=== PATIENT | male | born 1940 | race Caucasian/White ===

== ENCOUNTER 2018-12-09 12:35 | Observation (INO) ==
[2018-12-09 13:28] LABS: Basophils # 0.1 10*3/uL (0.0-0.2); Basophils % 0.8 % (0.0-0.8); Eosinophils # 0.2 10*3/uL (0.0-0.87); Eosinophils % 2.5 % (0.00-10.9); Hematocrit 47.8 VOL% (42.0-52.0); Hemoglobin 15.5 GM/DL (14.0-18.0); Immature Granulocytes % 0.5 %; Immature Granulocytes Absolute 0.03 #; Lymphocytes % 15.2 % (21.2-54.2); Mean Corpuscular HGB Conc 32.4 GM/DL (32-36); Mean Corpuscular Hemoglobin 29 PG (27-34); Mean Platelet Volume 10.9 FL (9.6-12.0); Monocytes # 0.4 10*3/uL (0.11-0.8); Neutrophils # 4.7 10*3/uL (1.4-7.4); Platelet Count 214 T/CUMM (130-400); Red Blood Count 5.31 MC/CUMM (3.8-5.5); Red Cell Distribution Width 12.7 % (9.3-17.3); White Blood Count 6.3 T/CUMM (4-12)
[2018-12-09 13:40] LABS: PT Patient Result 10.7 SECS; Partial Thromboplastin Time 26.9 SECS (0-40)
[2018-12-09 13:43] LABS: Bilirubin,Total 0.7 MG/DL (0.2-1.0); Calcium 9.4 MG/DL (8.5-10.1); Osmolality,Calculated 277.7 MOS/KG (273-304); Potassium 4.2 MMOL/L (3.5-5.1); Total Protein 7.7 G/DL (6.4-8.3)
[2018-12-09] MEDS ORDERED: SODIUM CHLORIDE 0.9% 500 ML IV STA (14:46)
[2018-12-09 15:26] LABS: Barbiturates Screen,Urine Negative (Negative); Benzodiazepines Screen,Urine Negative (Negative); Cannabinoid Screen,Urine Negative (Negative); Opiate Screen,Urine Negative (Negative); Phencyclidine Screen,Urine Negative (Negative)
[2018-12-09 15:31] LABS: Apearance,Urine CLEAR (Clear); Bilirubin,Urine Negative (Negative); Blood, Urine Negative (Negative); Glucose,Urine (UA) Negative (Negative); Ketones,Urine Negative (Negative); Mucus,Urine Occasional /LPF (Occasional); Nitrite,Urine Negative (Negative); Protein,Urine Negative; RBC,Urine 1 /HPF (0-4); Urine Color Yellow (Yellow); Urine Specific Gravity 1.017 (1.001-1.035); Urine Urobilinogen < 2.0 EU/DL (0.2-1.0); WBC,Urine <1 /HPF (0-6)
[2018-12-09 15:52] LABS: Alanine Aminotransferase 13 U/L (16-61); Albumin 4.1 G/DL (3.4-5.0); Alkaline Phosphatase 80 U/L (45-117); Aspartate Amino Transferase 16 U/L (0-37); Blood Urea Nitrogen 20 MG/DL (7-18); Calcium 9.4 MG/DL (8.5-10.1); Glucose 95 MG/DL (74-106); Osmolality,Calculated 279.5 MOS/KG (273-304); Potassium 4.4 MMOL/L (3.5-5.1); Sodium 139 MMOL/L (136-145); Total Protein 7.5 G/DL (6.4-8.3); Troponin I < 0.015 NG/ML (0.00-0.045)
[2018-12-09] MEDS ORDERED: ACETAMINOPHEN 325 MG TABLET PO PRN (17:30)
[2018-12-09] MEDS ORDERED: ONDANSETRON 4 MG/2 ML VIAL IV PRN (17:30)
[2018-12-09] MEDS ORDERED: MORPHINE 4 MG/1 ML VIAL IV PRN (17:30)
[2018-12-09] MEDS: SODIUM CHLORIDE 0.9% 1,000 ML IV SCH (17:43)
[2018-12-09] MEDS: DONEPEZIL 10 MG TABLET PO SCH (20:29)
[2018-12-09] MEDS: DOCUSATE SODIUM 100 MG CAPSULE PO SCH (20:29)
[2018-12-09] MEDS: MEMANTINE 10 MG TABLET PO SCH (20:29)
[2018-12-10 05:56] LABS: Basophils # 0.1 10*3/uL (0.0-0.2); Basophils % 0.8 % (0.0-0.8); Eosinophils # 0.3 10*3/uL (0.0-0.87); Eosinophils % 4.2 % (0.00-10.9); Hematocrit 43.3 VOL% (42.0-52.0); Hemoglobin 13.7 GM/DL (14.0-18.0); Immature Granulocytes % 0.3 %; Immature Granulocytes Absolute 0.02 #; Lymphocytes # 1.5 10*3/uL (1.4-4.0); Lymphocytes % 21.8 % (21.2-54.2); Mean Corpuscular HGB Conc 31.6 GM/DL (32-36); Mean Corpuscular Hemoglobin 29 PG (27-34); Mean Platelet Volume 11.3 FL (9.6-12.0); Monocytes # 0.7 10*3/uL (0.11-0.8); Monocytes % 9.9 % (1.7-12.7); Neutrophils # 4.2 10*3/uL (1.4-7.4); Platelet Count 199 T/CUMM (130-400); Red Blood Count 4.76 MC/CUMM (3.8-5.5); Red Cell Distribution Width 12.7 % (9.3-17.3); White Blood Count 6.7 T/CUMM (4-12)
[2018-12-10 06:24] LABS: Albumin 3.2 G/DL (3.4-5.0); Bilirubin,Total 1.1 MG/DL (0.2-1.0); Calcium 8.7 MG/DL (8.5-10.1); Osmolality,Calculated 276.7 MOS/KG (273-304); Risk Ratio 3.16; Total Protein 6.7 G/DL (6.4-8.3)
[2018-12-10] MEDS: SODIUM CHLORIDE 0.9% 1,000 ML IV SCH (06:29)
[2018-12-10] MEDS: ARIPiprazole 5 MG TABLET PO SCH (08:42)
[2018-12-10] MEDS: ROSUVASTATIN 10 MG TABLET PO SCH (08:42)
[2018-12-10] MEDS: ESCITALOPRAM 10 MG TABLET PO SCH (08:42)
[2018-12-10] MEDS: CARBIDOPA/LEVODOPA 25-100 MG TABLET PO SCH ×4 (08:42→18:19)
[2018-12-10] MEDS: ASPIRIN EC 325 MG TABLET PO SCH (08:42)
[2018-12-10] MEDS: DOCUSATE SODIUM 100 MG CAPSULE PO SCH ×2 (08:42→21:46)
[2018-12-10] MEDS: MEMANTINE 10 MG TABLET PO SCH ×2 (08:43→21:46)
[2018-12-10] MEDS: PANTOPRAZOLE 40 MG TABLET PO SCH (08:43)
[2018-12-10] MEDS: LACTOBACILLUS ACIDOPHILUS/BULGARICUS CAPLET PO SCH (08:43)
[2018-12-10] MEDS: MULTIVITAMIN (CENTRUM) TABLET PO SCH (08:43)
[2018-12-10] MEDS: LISINOPRIL 2.5 MG TABLET PO SCH (08:43)
[2018-12-10] MEDS ORDERED: PANTOPRAZOLE 40 MG TABLET PO SCH (09:00)
[2018-12-10] MEDS: DONEPEZIL 10 MG TABLET PO SCH (21:46)
[2018-12-11 08:13] VITALS: BP 159/81
[2018-12-11] MEDS: MEMANTINE 10 MG TABLET PO SCH (08:54)
[2018-12-11] MEDS: ARIPiprazole 5 MG TABLET PO SCH (08:54)
[2018-12-11] MEDS: DOCUSATE SODIUM 100 MG CAPSULE PO SCH (08:54)
[2018-12-11] MEDS: CARBIDOPA/LEVODOPA 25-100 MG TABLET PO SCH (08:54)
[2018-12-11] MEDS: MULTIVITAMIN (CENTRUM) TABLET PO SCH (08:54)
[2018-12-11] MEDS: ROSUVASTATIN 10 MG TABLET PO SCH (08:54)
[2018-12-11] MEDS: ESCITALOPRAM 10 MG TABLET PO SCH (08:54)
[2018-12-11] MEDS: LACTOBACILLUS ACIDOPHILUS/BULGARICUS CAPLET PO SCH (08:54)
[2018-12-11] MEDS: LISINOPRIL 2.5 MG TABLET PO SCH (08:54)
[2018-12-11] MEDS: ASPIRIN EC 325 MG TABLET PO SCH (08:55)
[2018-12-11] MEDS: PANTOPRAZOLE 40 MG TABLET PO SCH (08:55)
== END 2018-12-11 10:26 | disposition home health service (06) ==
LOC: N.ED 12:35 → N.EDINP 12:35 → N.5E 17:16
PROVIDERS: ADMIT Family Medicine; ATTEND Family Medicine

== ENCOUNTER 2021-09-26 08:44 | Inpatient (IN) ==
[2021-09-26] MEDS ORDERED: LIDOCAINE 1% 20 ML VIAL ONE (09:26)
[2021-09-26] MEDS ORDERED: HEPARIN/NACL 0.9% 2 UNITS/ML 1,000 UNIT/500 ML BAG IV ONE (09:26)
[2021-09-26] MEDS ORDERED: HEPARIN/NACL 0.9% 2 UNITS/ML 2,000 UNIT/1,000 ML BAG IV ONE (09:26)
[2021-09-26] MEDS ORDERED: HEPARIN 5,000 UNIT/1 ML VIAL ONE ×2 (09:28→10:26)
[2021-09-26] MEDS ORDERED: ASPIRIN 325 MG TABLET ONE (09:28)
[2021-09-26] MEDS ORDERED: NITROGLYCERIN DRIP 50 MG/250 ML BOTTLE IV ONE ×2 (09:35→15:50)
[2021-09-26] MEDS ORDERED: MIDAZOLAM 2 MG/2 ML VIAL ONE (09:35)
[2021-09-26] MEDS ORDERED: fentaNYL 100 MCG/2 ML VIAL ONE (09:35)
[2021-09-26] MEDS ORDERED: diphenhydrAMINE 50 MG/1 ML VIAL ONE (09:38)
[2021-09-26] MEDS ORDERED: methylPREDNISolone SOD SUC 125 MG/2 ML VIAL ONE (09:39)
[2021-09-26] MEDS ORDERED: ASPIRIN 325 MG TABLET PO STA (09:45)
[2021-09-26] MEDS ORDERED: HEPARIN 5,000 UNIT/1 ML VIAL IV ONE (09:45)
[2021-09-26] MEDS ORDERED: NALOXONE 0.4 MG/ML VIAL ONE (09:56)
[2021-09-26] MEDS ORDERED: METOPROLOL TARTRATE 5 MG/5 ML VIAL IV ONE (10:48)
[2021-09-26] MEDS ORDERED: DOCUSATE SODIUM 100 MG CAPSULE PO PRN (10:54)
[2021-09-26] MEDS ORDERED: ACETAMINOPHEN 325 MG TABLET PO PRN (10:54)
[2021-09-26] MEDS ORDERED: MAGNESIUM SULF RIDER 2 GM/50 ML PREMIX IV PRN (10:54)
[2021-09-26] MEDS ORDERED: ONDANSETRON 4 MG/2 ML VIAL IV PRN (10:54)
[2021-09-26] MEDS ORDERED: PROMETHAZINE 25 MG TABLET PO PRN (10:54)
[2021-09-26] MEDS ORDERED: POTASSIUM CHLORIDE 20 MEQ TABLET PO PRN (10:54)
[2021-09-26] MEDS ORDERED: ALUMINUM/MAGNES/SIMETH MAX STR 30 ML UDCUP PO PRN (10:54)
[2021-09-26] MEDS ORDERED: MAGNESIUM SULF RIDER 4 GM/100 ML PREMIX IV PRN (10:54)
[2021-09-26] MEDS ORDERED: hydrALAZINE 20 MG/1 ML VIAL IV PRN (10:54)
[2021-09-26] MEDS ORDERED: guaiFENesin/DM ER 600-30 MG TABLET PO PRN (10:54)
[2021-09-26] MEDS ORDERED: diphenhydrAMINE CAP 25 MG CAPSULE PO PRN (10:54)
[2021-09-26] MEDS ORDERED: CLOPIDOGREL 300 MG TABLET ONE (11:04)
[2021-09-26 11:06] LABS: Basophils # 0.1 10*3/uL (0.0-0.2); Basophils % 0.6 % (0.0-0.8); Eosinophils # 0.2 10*3/uL (0.0-0.87); Eosinophils % 1.4 % (0.00-10.9); Hematocrit 43.6 VOL% (42.0-52.0); Hemoglobin 14.3 GM/DL (14.0-18.0); Immature Granulocytes % 0.6 %; Immature Granulocytes Absolute 0.07 #; Lymphocytes # 1.1 10*3/uL (1.4-4.0); Mean Corpuscular HGB Conc 32.8 GM/DL (32-36); Mean Corpuscular Volume 90.1 FL (87-102); Mean Platelet Volume 11.8 FL (9.6-12.0); Monocytes % 10.5 % (1.7-12.7); Neutrophils % 76.9 % (38.7-73.9); Platelet Count 233 T/CUMM (130-400); Red Blood Count 4.84 MC/CUMM (3.8-5.5); White Blood Count 11.1 T/CUMM (4-12)
[2021-09-26] MEDS: MORPHINE 2 MG/1 ML SYRINGE IV PRN (12:04)
[2021-09-26] MEDS ORDERED: ZIPRASIDONE 20 MG/1 ML VIAL IM PRN (13:21)
[2021-09-26 13:40] LABS: Albumin 3.5 G/DL (3.4-5.0); Bilirubin,Total 1.3 MG/DL (0.20-1.00); Calcium 8.6 MG/DL (8.5-10.1); Osmolality,Calculated 276.8 MOS/KG (273-304); Potassium 4.2 MMOL/L (3.5-5.1); Risk Ratio 3.51; Thyroid Stimulating Hormone 2.2 uIU/ml (0.358-3.74); Total Protein 7.2 G/DL (6.4-8.2); VLDL Cholesterol 17.2 MG/DL
[2021-09-26 13:41] LABS: High Sensitive Troponin I* 23294.7 ng/L (0-78)
[2021-09-26] MEDS ORDERED: NITROGLYCERIN DRIP 50 MG/250 ML BOTTLE IV PRN (16:19)
[2021-09-26] MEDS: ROSUVASTATIN 20 MG TABLET PO SCH (20:28)
[2021-09-26] MEDS: METOPROLOL TARTRATE 25 MG TABLET PO SCH (20:28)
[2021-09-26] MEDS: ZALEPLON 5 MG CAPSULE PO PRN (20:29)
[2021-09-27] MEDS: MORPHINE 2 MG/1 ML SYRINGE IV PRN (04:00)
[2021-09-27 05:01] LABS: Basophils % 0.1 % (0.0-0.8); Hemoglobin 13.1 GM/DL (14.0-18.0); Immature Granulocytes % 0.7 %; Immature Granulocytes Absolute 0.14 #; Lymphocytes # 0.9 10*3/uL (1.4-4.0); Lymphocytes % 4.8 % (21.2-54.2); Mean Corpuscular HGB Conc 32.8 GM/DL (32-36); Mean Corpuscular Volume 90.5 FL (87-102); Monocytes % 8.9 % (1.7-12.7); Neutrophils % 85.5 % (38.7-73.9); Platelet Count 239 T/CUMM (130-400); Red Blood Count 4.42 MC/CUMM (3.8-5.5); Red Cell Distribution Width 13.1 % (9.3-17.3); White Blood Count 18.7 T/CUMM (4-12)
[2021-09-27 05:26] LABS: Hypochromia 1+; Lymphocytes 5 % (20-55); Microcytosis 1+; Platelet Estimate Adequate; Segmented Neutrophils 91 % (50-85); Total Cells Counted 100
[2021-09-27 05:29] LABS: Albumin 3.3 G/DL (3.4-5.0); Bilirubin,Total 0.6 MG/DL (0.20-1.00); Calcium 9.2 MG/DL (8.5-10.1); Osmolality,Calculated 278.7 MOS/KG (273-304); Potassium 4.4 MMOL/L (3.5-5.1); Total Protein 6.9 G/DL (6.4-8.2)
[2021-09-27] MEDS: ASPIRIN EC 81 MG TABLET PO SCH (08:37)
[2021-09-27] MEDS: PANTOPRAZOLE 40 MG TABLET PO SCH (08:37)
[2021-09-27] MEDS: METOPROLOL TARTRATE 25 MG TABLET PO SCH ×2 (12:35→20:34)
[2021-09-27] MEDS: CARBIDOPA/LEVODOPA 25-100 MG TABLET PO SCH ×2 (14:25→17:05)
[2021-09-27] MEDS: MEMANTINE 10 MG TABLET PO SCH ×2 (14:25→21:00)
[2021-09-27] MEDS: CLOPIDOGREL 75 MG TABLET PO SCH (14:25)
[2021-09-27] MEDS: ESCITALOPRAM 10 MG TABLET PO SCH (14:25)
[2021-09-27] MEDS: ROSUVASTATIN 20 MG TABLET PO SCH (21:00)
[2021-09-27] MEDS: OXYBUTYNIN 5 MG TABLET PO SCH (21:00)
[2021-09-27] MEDS: QUEtiapine 25 MG TABLET PO SCH (21:00)
[2021-09-27] MEDS: ZALEPLON 5 MG CAPSULE PO PRN (21:00)
[2021-09-27] MEDS: RIVASTIGMINE 3 MG CAPSULE PO SCH (21:00)
[2021-09-28 04:51] LABS: Basophils # 0.1 10*3/uL (0.0-0.2); Basophils % 0.4 % (0.0-0.8); Eosinophils # 0.1 10*3/uL (0.0-0.87); Eosinophils % 0.4 % (0.00-10.9); Hematocrit 43.6 VOL% (42.0-52.0); Hemoglobin 13.7 GM/DL (14.0-18.0); Immature Granulocytes % 0.6 %; Immature Granulocytes Absolute 0.07 #; Lymphocytes # 1.1 10*3/uL (1.4-4.0); Lymphocytes % 9.5 % (21.2-54.2); Mean Corpuscular HGB Conc 31.4 GM/DL (32-36); Mean Corpuscular Volume 94.8 FL (87-102); Mean Platelet Volume 10.7 FL (9.6-12.0); Monocytes % 11.9 % (1.7-12.7); Neutrophils % 77.2 % (38.7-73.9); Platelet Count 191 T/CUMM (130-400); Red Cell Distribution Width 13.1 % (9.3-17.3); White Blood Count 11.3 T/CUMM (4-12)
[2021-09-28 06:09] LABS: Calcium 8.7 MG/DL (8.5-10.1); High Sensitive Troponin I* 24818.1 ng/L (0-78); Potassium 4.1 MMOL/L (3.5-5.1)
[2021-09-28] MEDS: MEMANTINE 10 MG TABLET PO SCH ×3 (09:41→21:02)
[2021-09-28] MEDS: CARBIDOPA/LEVODOPA 25-100 MG TABLET PO SCH ×4 (09:41→16:38)
[2021-09-28] MEDS: ASPIRIN EC 81 MG TABLET PO SCH (09:41)
[2021-09-28] MEDS: ESCITALOPRAM 10 MG TABLET PO SCH (09:41)
[2021-09-28] MEDS: PANTOPRAZOLE 40 MG TABLET PO SCH (09:41)
[2021-09-28] MEDS: CLOPIDOGREL 75 MG TABLET PO SCH (09:41)
[2021-09-28] MEDS: OXYBUTYNIN 5 MG TABLET PO SCH ×2 (09:41→21:01)
[2021-09-28] MEDS: METOPROLOL TARTRATE 25 MG TABLET PO SCH ×2 (09:42→20:56)
[2021-09-28] MEDS: QUEtiapine 25 MG TABLET PO SCH ×2 (09:42→21:02)
[2021-09-28] MEDS: RIVASTIGMINE 3 MG CAPSULE PO SCH ×2 (09:51→21:03)
[2021-09-28] MEDS: ROSUVASTATIN 20 MG TABLET PO SCH (21:01)
[2021-09-29] MEDS: OXYBUTYNIN 5 MG TABLET PO SCH ×2 (08:20→20:42)
[2021-09-29] MEDS: RIVASTIGMINE 3 MG CAPSULE PO SCH ×2 (08:20→21:09)
[2021-09-29] MEDS: PANTOPRAZOLE 40 MG TABLET PO SCH (08:20)
[2021-09-29] MEDS: ESCITALOPRAM 10 MG TABLET PO SCH (08:20)
[2021-09-29] MEDS: ASPIRIN EC 81 MG TABLET PO SCH (08:20)
[2021-09-29] MEDS: CLOPIDOGREL 75 MG TABLET PO SCH (08:21)
[2021-09-29] MEDS: CARBIDOPA/LEVODOPA 25-100 MG TABLET PO SCH ×4 (08:22→18:34)
[2021-09-29] MEDS: MEMANTINE 10 MG TABLET PO SCH ×3 (08:22→20:42)
[2021-09-29] MEDS: METOPROLOL TARTRATE 25 MG TABLET PO SCH ×2 (08:25→20:42)
[2021-09-29] MEDS: ROSUVASTATIN 20 MG TABLET PO SCH (20:41)
[2021-09-29] MEDS: QUEtiapine 25 MG TABLET PO SCH (20:42)
[2021-09-30] MEDS: ESCITALOPRAM 10 MG TABLET PO SCH (11:56)
[2021-09-30] MEDS: ASPIRIN EC 81 MG TABLET PO SCH (11:56)
[2021-09-30] MEDS: CARBIDOPA/LEVODOPA 25-100 MG TABLET PO SCH ×4 (11:56→19:40)
[2021-09-30] MEDS: OXYBUTYNIN 5 MG TABLET PO SCH (11:56)
[2021-09-30] MEDS: RIVASTIGMINE 3 MG CAPSULE PO SCH (11:56)
[2021-09-30] MEDS: PANTOPRAZOLE 40 MG TABLET PO SCH (11:57)
[2021-09-30] MEDS: METOPROLOL TARTRATE 25 MG TABLET PO SCH (11:57)
[2021-09-30] MEDS: MEMANTINE 10 MG TABLET PO SCH ×2 (11:57→17:33)
[2021-09-30] MEDS: CLOPIDOGREL 75 MG TABLET PO SCH (11:57)
[2021-09-30] MEDS ORDERED: TUBERCULIN SKIN TEST 0.1 ML SYRINGE INTRADERM ONE (12:42)
[2021-09-30 17:41] VITALS: BP 125/77
== END 2021-09-30 18:43 | DRG 247 ==
LOC: N.ED 08:44 → N.EDINP 10:54 → SUATTDRO 10:54 → N.CVR 11:21 → N.ICU 19:44 → N.TELES 09-29 16:55
PROVIDERS: ADMIT Internal Medicine Cardiovascular Disease; ATTEND Internal Medicine Cardiovascular Disease